=== PATIENT | female | born 1960 | race Caucasian/White ===

== ENCOUNTER 2020-10-31 10:19 | Outpatient (CLI) | payer MEDICARE, MEDICAID | END 2020-10-31 10:20 | disposition home or self-care (01) | LOC: BICMAMMO 10:19 | PROVIDERS: ATTEND Student in an Organized Health Care Education/Training Program | DX: Z12.31 Encounter for screening mammogram for malignant neoplasm of breast (principal); Z12.2 Encounter for screening for malignant neoplasm of respiratory organs; Z78.0 Asymptomatic menopausal state; Z13.820 Encounter for screening for osteoporosis; F17.210 Nicotine dependence, cigarettes, uncomplicated; R91.8 Other nonspecific abnormal finding of lung field; N28.89 Other specified disorders of kidney and ureter; M81.0 Age-related osteoporosis without current pathological fracture | CPT/HCPCS: 71271; 77063; 77067; 77080 ==